=== PATIENT | male | born 1940 | race Caucasian/White ===

== ENCOUNTER 2018-05-13 18:36 | Emergency (ER) | payer MEDICARE, BC ==
[2018-05-13] MEDS ORDERED: ONDANSETRON HCL 4 MG/2 ML SOL IV ONE (18:41)
[2018-05-13] MEDS ORDERED: MECLIZINE HYDROCHLORIDE 12.5 MG TAB PO ONE (18:41)
[2018-05-13] MEDS ORDERED: MECLIZINE HYDROCHLORIDE 12.5 MG TAB ONE (18:45)
[2018-05-13] MEDS ORDERED: ONDANSETRON HCL 4 MG/2 ML SOL ONE (18:45)
[2018-05-13 18:55] VITALS: RESP 12; TEMP 97.7
[2018-05-13] MEDS ORDERED: SODIUM CHLORIDE 0.9% 1000ML 1,000 ML IV ONE (18:55)
[2018-05-13] MEDS ORDERED: SODIUM CHLORIDE 0.9% FLUSH 10 ML SOL IV PRN (18:56)
[2018-05-13 19:13] LABS: BASOPHILS % (AUTO) 1 % (0-3); EOSINOPHILS % (AUTO) 1 % (0-9); HEMATOCRIT 43 % (39-53); HEMOGLOBIN 14.5 gm/dl (13.5-17.7); LYMPHOCYTES % (AUTO) 16.01 % (10-50); MEAN CORPUSCULAR HEMOGLOBIN 30.7 pg (27.0-32.0); MEAN CORPUSCULAR HGB CONC 33.7 gm/dl (32.0-36.0); MEAN CORPUSCULAR VOLUME 91 fL (80-100); MONOCYTES % (AUTO) 8.5 % (0-12); NEUTROPHILS % (AUTO) 73.8 % (37-80)
[2018-05-13 19:26] LABS: ALBUMIN 3.8 gm/dl (3.4-5.0); BILIRUBIN,TOTAL 0.6 mg/dl (0.2-1.0); CALCIUM 8.3 mg/dl (8.5-10.1); CARBON DIOXIDE 28.1 mEq/L (21-32); CREATININE 0.86 mg/dl (0.80-1.30); POTASSIUM 3.8 mMol/L (3.5-5.1); TOTAL PROTEIN 7.2 gm/dl (6.4-8.2)
[2018-05-13 21:27] VITALS: BP 165/85; PULSE 63; O2SAT 96
== END 2018-05-13 20:18 | disposition home or self-care (01) | DRG 149 ==
LOC: ED 18:36
DX: R42 Dizziness and giddiness (principal); R11.2 Nausea with vomiting, unspecified
CPT/HCPCS: 36415; 70450; 80053; 85025; 99285; J2405; A9270-GY